=== PATIENT | male | born 1965 | race Two or more races ===

== ENCOUNTER → 2022-03-18 | Outpatient (CLI) | payer BC ==
[2022-03-18] VITALS (9 sets, daily range): BP systolic 118–152; BP diastolic 65–93
[~2022-03-18] MED LIST: IOHEXOL 350 MG/ML 100ML IJ ONE; METOPROLOL TARTRATE 1MG/1ML-5ML VIAL IV ONE; NITROGLYCERIN 0.4 MG SL TAB SL ONE
[2022-03-18 12:06] LABS: Albumin 2.9 g/dL (3.4-5.0); Calcium 8.4 mg/dL (8.5-10.1); Potassium 3.5 mmol/L (3.5-5.1)
[2022-03-18 12:11] LABS: BUN/Creatinine Ratio 6.1; Bilirubin, Total 0.4 mg/dL (0.2-1.0); Total Protein 5.8 g/dL (6.4-8.2)
[2022-03-18 12:28] LABS: Folate (Folic Acid) 13.25 ng/mL (5.38-24); Prostate Specific Antigen 0.53 ng/mL (0.0-4.0)
== END | disposition home or self-care (01) ==
LOC: Rad HDHVI 10:30
PROVIDERS: ATTEND Internal Medicine Cardiovascular Disease
DX: I25.10 Atherosclerotic heart disease of native coronary artery without angina pectoris (principal); R42 Dizziness and giddiness; Z79.899 Other long term (current) drug therapy
CPT/HCPCS: 36415; 75574; 80053; 80061; 82306; 82607; 82746; 83036; 84153; 84403; 96374; G0463; Q9967

== ENCOUNTER → 2022-03-30 | Outpatient (CLI) | payer BC ==
[2022-03-30 09:50] LABS: Potassium 3.9 mmol/L (3.5-5.1)
[2022-03-30 09:59] LABS: CRP High Sensitivity 0.04 mg/dL (< 0.3)
== END | disposition home or self-care (01) ==
LOC: LAB 08:52
PROVIDERS: ATTEND Internal Medicine
DX: R55 Syncope and collapse (principal)
CPT/HCPCS: 36415; 80061; 82565; 83735; 84132; 84520; 85379; 85576; 86141

== ENCOUNTER → 2022-04-01 | Outpatient (CLI) | payer BC | END | disposition home or self-care (01) | LOC: EEVIPCON 08:07 → XY 08:07 | PROVIDERS: ATTEND Internal Medicine | DX: J98.11 Atelectasis (principal); R91.1 Solitary pulmonary nodule; K44.9 Diaphragmatic hernia without obstruction or gangrene; R55 Syncope and collapse | CPT/HCPCS: 71275; 93306; 93886; Q9967 ==

== ENCOUNTER → 2023-02-25 | Outpatient (CLI) | payer BC, OTHER ==
[2023-02-25 07:41] LABS: Basophils # (auto) 0.1 10 ^3/uL (0-0.2); Basophils % (auto) 1.1 % (0.0-2.0); Eosinophils # (auto) 0.2 10 ^3/uL (0-0.8); Eosinophils % (auto) 3.1 % (0.0-7.0); Hematocrit 41.9 % (41.0-53.0); Hemoglobin 14.3 g/dL (13.5-17.5); Lymphocytes % (auto) 29.9 % (10.0-50.0); Mean Corpuscular Hemoglobin 32.5 pg (28.0-32.0); Mean Corpuscular Hgb Conc. 34.2 g/dL (32.0-36.0); Mean Corpuscular Volume 95.1 fL (80.0-100.0); Monocytes # (auto) 0.4 10 ^3/uL (0-1.3); Monocytes % (auto) 6.6 % (0.0-12.0); Neutrophils % (auto) 59.3 % (37.0-80.0); Red Blood Cells 4.41 10^6/uL (4.5-5.90); Red Cell Distribution Width 13.9 % (11.8-14.3); White Blood Cell 6.7 10^3/uL (4.4-10.8)
[2023-02-25 07:52] LABS: Urine Bacteria NONE SEEN /hpf (None Seen); Urine Blood Negative /uL (Negative); Urine Clarity Clear (Clear); Urine Color Yellow (Yellow); Urine Hyaline Cast MOD /lpf (0 - 2); Urine Mucus FEW (None Seen); Urine Protein, UAD 1+ (Negative); Urine WBC 1 /hpf (0 - 3)
[2023-02-25 08:15] LABS: Erythrocyte Sedimentation Rate 10 mm/hr (0-20)
[2023-02-25 08:24] LABS: Alanine Aminotransferase 31 U/L (7-40); Albumin 4.9 g/dL (3.2-4.8); Alkaline Phosphatase 62 U/L (46-116); Anion Gap 9 (5-15); Aspartate Aminotransferase 51 U/L (13-40); BUN/Creatinine Ratio 6.1 (10.0-20.0); Blood Urea Nitrogen 6 mg/dL (9-23); Calcium 9.9 mg/dL (8.5-10.1); Carbon Dioxide 27 mmol/L (20-30); Chloride 102 mmol/L (98-107); Cholesterol 189 mg/dL (< 200); Glucose 106 mg/dL (74-106); HDL Cholesterol 88 mg/dL (40-59); LDL Cholesterol 75 mg/dL (< 100); Potassium 3.3 mmol/L (3.5-5.1); Sodium 138 mmol/L (136-145); Triglycerides 129 mg/dL (< 150)
[2023-02-25 08:25] LABS: Total Protein 7.7 g/dL (5.7-8.2)
[2023-02-25 08:49] LABS: Prostate Specific Antigen 0.72 ng/mL (0.0-4.0)
[2023-02-25 08:54] LABS: Free T4 (Free Thyroxine) 1.14 ng/dL (0.89-1.76)
== END | disposition home or self-care (01) ==
LOC: LAB 07:23
PROVIDERS: ATTEND Internal Medicine
DX: E53.8 Deficiency of other specified B group vitamins (principal); N40.0 Benign prostatic hyperplasia without lower urinary tract symptoms
CPT/HCPCS: 36415; 80053; 80061; 81001; 82306; 82607; 84153; 84439; 84443; 85025; 85652